=== PATIENT | male | born 1960 | race Caucasian/White ===

== ENCOUNTER 2025-03-17 07:33 | Emergency (ER) | payer OTHER, SELFPAY ==
[2025-03-17 07:37] VITALS: BP 154/82
--- NOTE | 2025-03-17 07:50 | ED.GENMED ---
History of Present Illness
General
Chief Complaint: Dizziness
Time Seen by Provider: 03/17/25 07:44
History of Present Illness
History of Present Illness:
64-year-old male presents to the emergency department for evaluation of abrupt onset of vertigo that began at 2 AM when his dog woke him up from sleep. Symptoms seem to sylvie when lying supine. Reports nausea and vomiting as well. No headaches,
vision changes, extremity paresthesias, chest pain, or shortness of breath. No history of similar.
Past History
Past History
ED Past Medical History: None
ED Past Surgical History: None
Social History
Tobacco: Non-smoker
Alcohol: None
Drug: None
Living: with family
Review of Systems
Review of Systems
Allergies reviewed?: Yes
All Other Systems: ROS reviewed and negative except as documented in HPI and ROS
Phy Exam
Physical Exam
Physical Exam:
GEN: Well appearing, NAD, WDWN
HEENT: Oral mucosa moist, no scleral icterus, no nasal congestion
Cardiac: Regular rate
Lung: No respiratory distress, no tachypnea
MSK: No gross deformity or injuries
Skin: Good color, no pallor or jaundice, no rashes
Neuro: AO x3; CN II-XII grossly intact. BUE strength 5/5 in all norman, sensation intact and symmetric. BLE strength 5/5 in all norman, sensation intact and symmetric. Patient notes mild vertiginous symptoms when standing however no appreciable
nystagmus is seen
Psych: Calm, cooperative
Course
Orders/Labs/Results
Orders:
Orders
03/17/25 07:49
Electrocardiogram (*1) Urgent
Reason for Study: Vertigo / Dizzy
EKG- Treatment ONCE
0.9% Sodium Chloride 1000 ml [Nss] 1,000 ml IV BOLUS
diazePAM [Valium Injection] 2 mg IV NOW STA
03/17/25 08:09
Complete Blood Count/No Diff Urgent
Comprehensive Metabolic Panel Urgent
03/17/25 09:15
Pt Eval And Treat Urgent
Treatment: vestibular
Activity Level: As Tolerated
03/17/25 11:24
Dexamethasone Sod Phosphate [Decadron] 6 mg IV NOW STA
Abnormal Lab Results
03/17/25
08:09
Chloride 114 H mmol/L
(98-107)
Glucose 164 H mg/dl
(70-99)
03/17/25 08:09
03/17/25 08:09
Vital Signs
Initial and Last Documented VS:
Initial Vital Signs
Temp Pulse Resp BP Pulse Ox
97.4 F 58 22 154/82 96
03/17/25 07:37 03/17/25 07:37 03/17/25 07:37 03/17/25 07:37 03/17/25 07:37
Last Documented Vital Signs
Temp Pulse Resp BP Pulse Ox
97.4 F 52 10 135/77 97
03/17/25 07:37 03/17/25 10:45 03/17/25 10:00 03/17/25 10:00 03/17/25 07:46
MDM/Problems Addressed
MDM/Problems Addressed:
Patient was seen by physical therapy, manipulative maneuvers highly suspicious for vestibular neuritis, will treat with a course of steroids, he is comfortable with discharge home. No indication for neuroimaging given fatigable vertigo at this time
*Critical Care Note
Total Time (30-74mins, 75-104mins- exclusive of procedures): Not Applicable
ED Attending Note
-
Portions of this chart may have been created with voice recognition software.� Occasional wrong word or��sound alike� substitutions may have occurred due to the inherent limitations of voice recognition software.
Discharge Plan
Departure
Patient Disposition: Home (Routine Discharge)
Date of Disposition: 03/17/25
Time of Disposition: 11:25
Patient with high blood pressure during this ER visit?: No
Discharge Problem:
Acute vestibular neuritis
Instructions: Labyrinthitis
Prescriptions:
New
methylprednisolone [Medrol (Jovan)] 4 mg tablets,dose pack
See Rx Instructions .ROUTE .COMPLEX Qty: 21 0RF
Rx Instructions:
orally per package directions
No Action
hydrocodone-acetaminophen 1 TABLET tablet
1 tab PO Q4HPRN PRN (Reason: severe pain) Qty: 20 0RF
Referrals:
Darryl Holm MD [Family Provider] -
Interventions
Interventions:
*Risk Screen - Suicide Last Done: 03/17/25 07:37
*General Assessment Last Done: 03/17/25 07:37
*Neglect/Abuse Screening Last Done: 03/17/25 07:37
*ED- Fall Risk Assessment Last Done: 03/17/25 08:07
*ED COVID-19 Vaccine History Last Done: 03/17/25 08:07
*Nursing Disposition Last Done: 03/17/25 11:44
ED- Neurological Assessment Last Done: 03/17/25 08:07
Discharge Date and Time
Discharge Date/Time: 03/17/25 11:44
Print Language: [place]
[2025-03-17 08:00] VITALS: BP 164/95
[2025-03-17 08:05] VITALS: BMI 33.1
[2025-03-17] MEDS: VALIUM INJECTION 2 MG IV (08:10)
[2025-03-17] MEDS: NSS 1000 IV (08:11)
[2025-03-17 08:25] LABS: Hematocrit 44.1 % (39.0-52.0); Hemoglobin 15.2 g/dL (13.0-18.0); Mean Corp Hgb Conc. 34.5 g/dL (33.0-37.0); Mean Corpuscular Hgb 30.4 pg (27.0-31.0); Mean Corpuscular Volume 88.2 fL (80.0-94.0); Mean Platelet Volume 9.6 fL (7.4-10.4); Platelet Count 259 10^3/uL (130-400); Red Cell Dist. Width 13.8 % (11.5-14.5); White Blood Cell Count 9.7 10^3/uL (4.8-10.8)
[2025-03-17 08:33] LABS: ALT (SGPT) 22 U/L (0-50); AST (SGOT) 21 U/L (17-59); Alkaline Phosphatase 54 U/L (38-126); Blood Urea Nitrogen 19 mg/dl (9-20); Calcium 9.4 mg/dl (8.4-10.2); Carbon Dioxide 24 mmol/L (22-30); Chloride 114 mmol/L (98-107); Estimated Creatinine Clearance 108 ml/min; Glucose 164 mg/dl (70-99); Potassium 4.3 mmol/L (3.5-5.1); Sodium 145 mmol/L (135-145); Total Bilirubin 1.1 mg/dl (0.2-1.3); Total Protein 6.9 g/dl (6.3-8.2); eGFR > 60.00
[2025-03-17 09:00] VITALS: BP 127/76
[2025-03-17 10:00] VITALS: BP 135/77
[2025-03-17 11:34] VITALS: BP 135/85; BP 138/78; BP 152/79; PULSE 58; PULSE 60; PULSE 62
[2025-03-17] MEDS: DECADRON 6 MG IV (11:44)
== END 2025-03-17 11:44 | disposition home or self-care (01) ==
LOC: EMR 07:33
PROVIDERS: Physician Assistant; EMERGENCY PHYSICIAN Emergency Medicine; FAMILY PHYSICIAN Internal Medicine
DX: H93.3X9 Disorders of unspecified acoustic nerve (principal); R11.2 Nausea with vomiting, unspecified
CPT/HCPCS: 99284; 96374; 96375; 96361; 80053; 85027; 93005

== ENCOUNTER 2025-03-28 09:38 | Outpatient (RCR) | payer OTHER, SELFPAY | END 2025-03-28 23:59 | disposition home or self-care (01) | LOC: RPT 09:38 | PROVIDERS: ATTENDING PHYSICIAN Internal Medicine | DX: H81.21 Vestibular neuronitis, right ear (principal); Z73.6 Limitation of activities due to disability | CPT/HCPCS: 97112; 97162 ==

== ENCOUNTER 2025-06-02 10:20 | Emergency (ER) | payer OTHER, SELFPAY ==
[2025-06-02 10:24] VITALS: BP 176/90
--- NOTE | 2025-06-02 10:48 | ED.GENMED ---
History of Present Illness
General
Chief Complaint: Skin Surface Trauma
Source: patient
Time Seen by Provider: 06/02/25 10:42
History of Present Illness
History of Present Illness:
64-year-old male presents to the emergency room complaining of an injury to his left index finger. Patient was working with a chainsaw when it kicked and injured his finger. He has a laceration to the dorsal surface over the MIP. Patient does not
recall his last tetanus shot. Patient is right-hand dominant. He does not take any oral anticoagulants.
Past History
Past History
ED Past Medical History: None
ED Past Surgical History: None
Social History
Tobacco: Non-smoker
Alcohol: None
Drug: None
Living: with family
Phy Exam
Physical Exam
Physical Exam:
General: Awake, Alert, Oriented X3. No acute distress.
Vitals: unremarkable
Head: Atraumatic
Eyes: Pupils equal, EOMI
Throat: Airway intact, no exudates
Neuro: Nonfocal
Skin: Warm, dry, no rash
Extremities: pulses equal b/l, no edema. Approximately 1 cm laceration over the MIP of the left index finger dorsal surface. Wound is well-approximated. Range of motion is intact of the finger. Sensation is intact.
Course
Orders/Labs/Results
Orders:
Orders
06/02/25 10:46
Tetanus/Diphth/Acelpertussis [Adacel] 0.5 ml IM .ONCE ONE
CR Finger(s)/thumb Min 2 Vw Lt Urgent
Comment:
Reason For Exam: chainsaw injury
Indicate Which Finger:: Index Finger
Vital Signs
Initial and Last Documented VS:
Initial Vital Signs
Temp Pulse Resp BP Pulse Ox
98.0 F 66 16 176/90 98
06/02/25 10:24 06/02/25 10:24 06/02/25 10:24 06/02/25 10:24 06/02/25 10:24
Last Documented Vital Signs
Temp Pulse Resp BP Pulse Ox
98.0 F 66 16 176/90 98
06/02/25 10:24 06/02/25 10:24 06/02/25 10:24 06/02/25 10:24 06/02/25 10:50
Procedures
Laceration Closure
Right Dorsal Second Finger:
Status of Wound: clean
Size of Wound in cm: 1.5
Description of Wound Edges: sharp
Preparation: cleaned with saline
Anesthesia: 1% Lidocaine
Revision/Debridement: routine- no revision
Wound exploration: explored to base- no FB
Type of Closure: single layer closure
Skin Closure Material: 4-0 nylon
Number of sutures: 5
Additional information:
Laceration does not violate the subcutaneous tissue and extend down towards deeper structures. Range of motion of the finger intact. Wound examined through a range of motion
MDM/Problems Addressed
Differential Diagnosis Includes:
Skin laceration, tendon injury, joint injury, foreign body, fracture
MDM/Problems Addressed:
Patient presents after suffering a injury to left index finger while using his chainsaw. X-ray shows no acute fracture. There is no foreign body noted in the area of the wound. There was a radiopaque foreign body noted at the base of the thumb
but this is not near the site of today's injury and therefore not relevant. Patient's finger examined and the laceration does not appear to violate the subcutaneous tissue. I move the patient's finger through a range of motion while examining the
laceration bed and continue to see no evaluation of the subcutaneous tissue. Tendon exam is intact. Sensation is intact. Wound closed with nylon sutures which he was told should be removed in 1 week.
*Radiology
Radiology exam reviewed: preliminary read by ED provider (No fracture for foreign body noted on my review of the patient's finger x-ray)
*Pulse Oximetry
SaO2: 98
Oxygen Mode of Delivery: Room air
Patient hypoxic: no
*Critical Care Note
Total Time (30-74mins, 75-104mins- exclusive of procedures): Not Applicable
ED Attending Note
-
Portions of this chart may have been created with voice recognition software.� Occasional wrong word or��sound alike� substitutions may have occurred due to the inherent limitations of voice recognition software.
Discharge Plan
Departure
Patient Disposition: Home (Routine Discharge)
Date of Disposition: 06/02/25
Time of Disposition: 11:46
Patient with high blood pressure during this ER visit?: Yes
Condition: Good
Discharge Problem:
Finger laceration
Instructions: Laceration Repair With Stitches (DC), BLOOD PRESSURE
Prescriptions:
No Action
hydrocodone-acetaminophen 1 TABLET tablet
1 tab PO Q4HPRN PRN (Reason: severe pain) Qty: 20 0RF
methylprednisolone [Medrol (Jovan)] 4 mg tablets,dose pack
See Rx Instructions .ROUTE .COMPLEX Qty: 21 0RF
Rx Instructions:
orally per package directions
Referrals:
Darryl Holm MD [Family Provider, Internal Medicine]
Activity Restrictions/Additional Instructions:
You have a laceration to your finger. X-ray showed no bony injury or foreign body in the area of the laceration. The radiologist did observe a foreign body in the skin at the base of your thumb. The stitches should be removed in 7 days.
Follow-up with your primary care doctor. Return if you have any signs of infection such as increased pain, purulent drainage or expanding redness.
Interventions
Interventions:
*Risk Screen - Suicide Last Done: 06/02/25 10:24
*Neglect/Abuse Screening Last Done: 06/02/25 10:24
*Nursing Disposition Last Done: 06/02/25 11:56
ED-Skin Assessment Last Done: 06/02/25 11:22
Discharge Date and Time
Discharge Date/Time: 06/02/25 11:56
Print Language: [place]
[2025-06-02] MEDS: ADACEL 0.5 ML IM (11:08)
== END 2025-06-02 11:56 | disposition home or self-care (01) ==
LOC: EMR 10:20
PROVIDERS: EMERGENCY PHYSICIAN Emergency Medicine; FAMILY PHYSICIAN Internal Medicine
DX: S61.211A Laceration without foreign body of left index finger without damage to nail, initial encounter (principal); W29.3XXA Contact with powered garden and outdoor hand tools and machinery, initial encounter; Z23 Encounter for immunization
CPT/HCPCS: 12001; 90471; 99283; 73140; 90715